=== PATIENT | female | born 1955 | race Caucasian/White ===

== ENCOUNTER → 2018-01-16 | Outpatient (CLI) | payer OTHER ==
[~2018-01-16] MED LIST: IOPAMIDOL (ISOVUE-300) 100 ML BTL ONE
== END ==
LOC: FIMAGING 10:23
PROVIDERS: ATTEND Physician Assistant
DX: R10.13 Epigastric pain (principal); R63.0 Anorexia; R14.0 Abdominal distension (gaseous); K76.89 Other specified diseases of liver; R59.0 Localized enlarged lymph nodes
CPT/HCPCS: Q9967

== ENCOUNTER → 2018-02-26 | Outpatient (CLI) | payer OTHER ==
[~2018-02-26] MED LIST changes: +GADOBUTROL 10 ML VIAL IVP ONE; -IOPAMIDOL (ISOVUE-300) 100 ML BTL ONE
== END ==
LOC: FIMAGING 15:49
PROVIDERS: ATTEND Nurse Practitioner Family
DX: D18.03 Hemangioma of intra-abdominal structures (principal); R93.5 Abnormal findings on diagnostic imaging of other abdominal regions, including retroperitoneum
CPT/HCPCS: A9585